=== PATIENT | male | born 1980 | race Caucasian/White ===

== ENCOUNTER 2018-02-13 16:09 | Emergency (ER) | payer BC ==
[2018-02-13 16:38] VITALS: BP 131/80
--- NOTE | 2018-02-13 16:48 | UC ---
Skin Complaint HPI - HPI Summary HPI Summary: Patient states he may had a tick attached to his posterior right ankle for couple hours yesterday wants to be sure that is not a risk for Lyme. Patient never seen a tick he thought was just a little bit of a scab and he pulled it off then pout later it could've been a tick - History of Current Complaint Chief Complaint: [facility] Time Seen by Provider: 02/13/18 16:32 Stated Complaint: POSS TICK BITE Hx Obtained From: Patient Pain Intensity: 0 Pain Scale Used: 0-10 Numeric Location: Discrete Aggravating Factor(s): Nothing Alleviating Factor(s): Nothing Associated Signs & Symptoms: Positive: Negative Related History: Insect Bite/Sting - Allergy/Home Medications Allergies/Adverse Reactions: Allergies Allergy/AdvReac Type Severity Reaction Status Date / Time No Known Allergies Allergy Verified 02/13/18 16:37 Home Medications: Home Medications Cetirizine* [ZyrTEC 10 MG TAB*] 10 mg PO DAILY 02/13/18 [History Confirmed 02/13] Review of Systems Constitutional: Negative Skin: Negative, Other - 1 cm red area right heel Eyes: Negative ENT: Negative Respiratory: Negative Cardiovascular: Negative Gastrointestinal: Negative Genitourinary: Negative Motor: Negative Neurovascular: Negative Musculoskeletal: Negative Neurological: Negative Psychological: Negative Is Patient Immunocompromised?: No All Other Systems Reviewed And Are Negative: Yes PMH/Surg Hx/FS Hx/Imm Hx Previously Healthy: Yes - Surgical History Surgical History: Yes Surgery Procedure, Year, and Place: WISDM TEETH REMOVED - Family History Known Family History: Positive: None - Social History Occupation: Employed Full-time Lives: With Family Alcohol Use: Occasionally Substance Use Type: None Smoking Status (MU): Never Smoked Tobacco Physical Exam Triage Information Reviewed: Yes Appearance: Well-Appearing, No Pain Distress - Worsening of the, Well-Nourished Vital Signs: Initial Vital Signs Temp 97.8 F 02/13/18 16:33 Pulse 68 02/13/18 16:33 Resp 16 02/13/18 16:33 BP 131/80 02/13/18 16:33 Pulse Ox 98 02/13/18 16:33 Vital Signs Reviewed: Yes Eye Exam: Normal Eyes: Positive: Conjunctiva Clear ENT Exam: Normal ENT: Positive: Normal ENT inspection, Hearing grossly normal. Negative: Trismus , Muffled voice, Hoarse voice Dental Exam: Normal Neck exam: Normal Neck: Positive: Supple, Nontender, No Lymphadenopathy Respiratory Exam: Normal Respiratory: Positive: Chest non-tender, No respiratory distress, No accessory muscle use Cardiovascular Exam: Normal Cardiovascular: Positive: RRR, Pulses Normal, Brisk Capillary Refill Musculoskeletal Exam: Normal Musculoskeletal: Positive: Strength Intact, ROM Intact, No Edema Neurological Exam: Normal Neurological: Positive: Alert, Muscle Tone Normal Psychological Exam: Normal Skin Exam: Normal Skin: Positive: Other - small red area right heel (about 1 cm diameter) Course/Dx - Course Course Of Treatment: Reassurance provided. Information regarding tick and Lyme disease given to patient for reference for the summer. Patient encouraged to follow with PCP when necessary - Diagnoses Provider Diagnoses: possible insect bite Discharge - Sign-Out/Discharge Documenting (check all that apply): Discharge/Admit/Transfer - Discharge Plan Condition: Stable Disposition: HOME Patient Education Materials: Lyme Disease (ED), Tick Bite (ED) Referrals: TEJAS Nazario [Medical Doctor] - If Needed - Billing Disposition and Condition Condition: STABLE Disposition: Home
== END 2018-02-13 16:53 | disposition home or self-care (01) ==
LOC: UCCORT 16:09
DX: L98.9 Disorder of the skin and subcutaneous tissue, unspecified (principal)
CPT/HCPCS: 99201; G0463